=== PATIENT | female | born 1935 | race Caucasian/White ===

== ENCOUNTER → 2016-11-06 | Outpatient (CLI) | payer MEDICARE, BC ==
[~2016-11-06] MED LIST: ALEVE220 M1 PO; ASPIRIN PO; ASPIRIN81 M2 PO; ASPIRIN81 MG PO; CRESTOR PO; FISH OIL 1,2001 EAC2 PO; FISH OIL-OMEGA1 EACH PO; FLUOXETINE HCL20 M1 PO; LIOTHYRONINE S25 MCG PO; LIPITOR80 MG PO; LORTAB 10-5001 EACH PO; NEPHROCAPS1 CAP DOB; NIACIN250 M1 PO; PAXIL CR PO; PRILOSEC PO; PROZAC10 M1 PO; SUPER B-COMPL400 MCG PO; SYNTHROID PO; SYNTHROID0.15 MG PO; SYNTHROID137 MCG PO; TRIAMCINOLONE A15 G3; TRIAMCINOLONE A15 G3 TOP; VIT E PO; VITAMIN D35000 UNIT PO; VITAMIN E400 UNI2 PO; [UNRECOGNIZED DRUG - REMARK]
--- NOTE | ~2016-11-06 | TH ---
Unit #: [id number] #: [id number] Patient: REY COBOS [id number] [address] [address] [id number] O MR#: [id number] NAME: REY COBOS : 1935 SEX: F STUDY DATE/TIME: 11/06/2016 UNIT: [facility] ROOM: STUDY DESCRIPTION: Attending Physician: Chano Carpenter M.D. Referring Physician: Chano Carpenter M.D. Primary Care Physician: Chano Carpenter M.D. CARDIOLOGY REPORT EXAM Lexiscan Cardiolite stress test. PROCEDURE Using technetium 99m labeled Cardiolite, rest and stress SPECT images were obtained. Multiple SPECT images were obtained in various views including horizontal and vertical long axis and short axis views of the left ventricle. Images were obtained by gated SPECT method. The patient was administered 10.52 mCi of Cardiolite at rest. The patient was administered 30.3 mCi of Cardiolite after Lexiscan infusion was completed. On the stress images, there is normal perfusion noted. The rest images showed normal perfusion. Comparing rest and stress images, there is no stress-induced ischemia noted. The left ventricular ejection fraction is calculated to be 89%. There is no focal wall motion abnormality seen. The left ventricular size is small. CONCLUSION 1. No stress-induced ischemia noted. 2. The left ventricular ejection fraction is calculated to be 89%. 3. There is no focal wall motion abnormality seen. 4. The left ventricular size is small. 5. Normal Lexiscan Cardiolite stress test. 6. Clinical correlation is requested. Dictated by... Terrance Nieves TD: 11/06/2016 11:29 JOB #: [id number] CC: Chano Carpenter M.D. Unit #: [id number] #: [id number] Patient: REY COBOS CARDIOLOGY REPORT X Le Samuels MD <ELECTRONICALLY SIGNED> 03/15/17 1426 CARDIOLOGY REPORT
== END | disposition home or self-care (01) ==
LOC: CNUC 06:42
DX: R07.9 Chest pain, unspecified (principal)
CPT/HCPCS: 78452; 82947; 93017; A9500; J2785

== ENCOUNTER 2017-01-24 08:20 | Emergency (ER) | payer MEDICARE, BC ==
--- NOTE | ~2017-01-24 | EKG ---
PATIENT: REY COBOS UNIT #: [id number] Ventricular Rate: 76 BPM Atrial Rate: 76 BPM P-R Interval: 136 ms QRS Duration: 70 ms Q-T Interval: 366 ms QTC Calculation(Bezet): 411 ms P [place]: 52 degrees Calculated R [place]: -49 degrees Calculated T [place]: 21 degrees Diagnosis Line: Normal sinus rhythm Diagnosis Line: Left axis deviation Diagnosis Line: Low voltage QRS Diagnosis Line: Left anterior fascicular block Diagnosis Line: Abnormal ECG Diagnosis Line: When compared with ECG of 19-OCT-2015 09:15, Diagnosis Line: No significant change was found Diagnosis Line: Confirmed by ROMINA MARTINEZ MD ([id number]) on Diagnosis Line: 01/25/2017 1:37:59 PM INTERPRETING MD: ZAIRE
--- NOTE | ~2017-01-24 | CR72 ---
[facility] A Service of [facility] & [facility] RADIOLOGY TEXT RESULTS PATIENT: REY COBOS LOCATION: [facility] : 35 UNIT #: [id number] AGE: [address]: Dennis Ventura MD SEX: F ORDER DR: [id number] [facility] [address] [place], [place] [address] [id number] E MR#: [id number] Acc #: [id number] NAME: REY COBOS : 1935 SEX: F STUDY DATE/TIME: 01/24/2017 8:55 UNIT: [facility] ROOM: STUDY DESCRIPTION: CR Chest Single View Portable Attending Physician: Dennis Ventura M.D. Ordering Physician: Dennis Ventura M.D. Primary Care Physician: Chano Carpenter M.D. MEDICAL IMAGING REPORT This report is preliminary unless electronic signature is present EXAM Portable chest, 01/24. INDICATION Chest pain and tingling in the left shoulder are that started last night. FINDINGS AP portable chest is compared with 06/24/2006. There is mild cardiomegaly. The lungs are clear except for some scarring in the left lower lung. No pneumothorax is seen. IMPRESSION Mild cardiomegaly. No active disease. Dictated by... Cesar Sherman Jr., M.D. THIS IS AN ELECTRONICALLY VERIFIED REPORT Cesar Sherman Jr., M.D. at 01/24/2017 3:54 PM VANDANA/justin TD: 01/24/2017 11:58 JOB #: [id number] MEDICAL IMAGING REPORT Page 1 of 1 COPY
[2017-01-24 09:24] LABS: BASOPHIL% 0.6 % (0-2.5); DIFF IND NO; EOSINOPHIL# 0.1 X10e3 (0-0.7); EOSINOPHIL% 1.4 % (0.0-7.0); HEMATOCRIT 42.1 % (35.0-45.0); HEMOGLOBIN 13.5 gm/dL (12.0-16.0); LYMPHOCYTE# 1.3 X10e3 (1.0-3.5); MEAN CELL VOLUME 96.5 FL (83-96); MEAN CORPUSCULAR HGB CONC 32.1 g/dL (30-36); MEAN PLATELET VOLUME 7.5 FL (6.5-11.5); MONOCYTE# 0.5 X10e3 (0-1.0); MONOCYTE% 8.8 % (3.0-12.0); NEUTROPHIL# 4.2 X10e3 (1.5-7.1); NEUTROPHIL% 68.2 % (40-75); PLATELET COUNT 215 X10e3 (140-420); RED BLOOD COUNT 4.36 X10e (3.90-5.30); RED CELL DISTRIBUTION WIDTH 13.7 % (11.0-15.5); WHITE BLOOD COUNT 6.1 X10e3 (4.0-10.5)
[2017-01-24 09:31] LABS: POC - CKMB 1.4 ng/mL (0.0-7.9); POC - TROPONIN <0.05 ng/mL (<=0.05)
[2017-01-24 09:37] LABS: PARTIAL THROMBOPLASTIN TIME 26.4 SECONDS (23.5-31.3); PROTHROMBIN TIME (PATIENT) 10.1 SECONDS (9.6-11.5)
[2017-01-24 09:55] LABS: ALBUMIN SERUM 3.7 g/dL (3.5-5.0); BILIRUBIN, DIRECT 0.1 mg/dL (0.0-0.2); BILIRUBIN,INDIRECT 0.8 mg/dL (0.0-0.9); BILIRUBIN,TOTAL 0.9 mg/dL (0.2-2.0); CALCIUM SERUM 8.9 mg/dL (8.4-10.2); CREATININE SERUM 0.7 mg/dL (0.6-1.4); GLOM FILT RATE Estimated 81.3 mL/min (>60); POTASSIUM 3.9 mmol/L (3.5-5.1); PROTEIN TOTAL SERUM 6.6 g/dL (6.0-8.3)
[2017-01-24 11:08] LABS: POC - CKMB 1.1 ng/mL (0.0-7.9); POC - TROPONIN <0.05 ng/mL (<=0.05)
[2017-01-24 11:33] LABS: POC - CKMB <1.0 ng/mL (0.0-7.9); POC - TROPONIN <0.05 ng/mL (<=0.05)
== END 2017-01-24 11:32 | disposition home or self-care (01) ==
LOC: CED 08:20
PROVIDERS: Emergency Medicine
DX: R07.89 Other chest pain (principal); E11.9 Type 2 diabetes mellitus without complications; Z79.899 Other long term (current) drug therapy; Z79.82 Long term (current) use of aspirin; Z86.73 Personal history of transient ischemic attack (TIA), and cerebral infarction without residual deficits; Z90.49 Acquired absence of other specified parts of digestive tract; Z90.710 Acquired absence of both cervix and uterus
CPT/HCPCS: 36415; 71010; 80048; 80076; 82553; 84484; 85025; 85610; 85730; 93005; 99284